=== PATIENT | female | born 1975 | race African-American/Black ===

== ENCOUNTER 2018-03-27 13:44 | Emergency (ER) | payer SELFPAY ==
[~2018-03-27] VITALS: Ht 154.9 cm; Wt 74.8 kg
[~2018-03-27 13:44] MED LIST: LISI-130 PO; LISI-334 PO
[2018-03-27 13:49] VITALS: BP 166/98
[2018-03-27] MEDS ORDERED: SULF1TAB24 PO (14:16)
--- NOTE | 2018-03-27 14:16 | PHYS DOC ---
Past Medical History Past Medical History: Diverticulitis, Diverticulosis, GERD, Hypertension, IBS, Other Additional Past Medical Histor: SBS Past Surgical History: Other Additional Past Surgical Histo: SBO, tibia and fibula repair Alcohol Use: Occasionally Drug Use: None Adult General Chief Complaint Chief Complaint: INSECT BITE HPI HPI Patient is a 42 year old female who presents with a tender lump to the left posterior neck. The patient states that she noticed it yesterday. It has now become tender. She also wanted me to look at her finger that she burned that has now developed a keloid scarring. The patient does not currently have a primary care provider. She denies fevers, nausea or vomiting. Review of Systems Review of Systems Constitutional: Denies fever or chills [] Eyes: Denies change in visual acuity, redness, or eye pain [] HENT: Denies nasal congestion or sore throat [] Respiratory: Denies cough or shortness of breath [] Cardiovascular: No additional information not addressed in HPI [] GI: Denies abdominal pain, nausea, vomiting, bloody stools or diarrhea [] : Denies dysuria or hematuria [] Musculoskeletal: Denies back pain or joint pain [] Integument: See history of present illness Neurologic: Denies headache, focal weakness or sensory changes [] Endocrine: Denies polyuria or polydipsia [] All other systems were reviewed and found to be within normal limits, except as documented in this note. Allergies Allergies Allergies Coded Allergies Type Severity Reaction Last Updated Verified No Known Drug Allergies 06/18/16 No Physical Exam Physical Exam Constitutional: Well developed, well nourished, no acute distress, non-toxic appearance. [] Cardiovascular:Heart rate regular rhythm, no murmur [] Lungs & Thorax: Bilateral breath sounds clear to auscultation [] Abdomen: Bowel sounds normal, soft, no tenderness, no masses, no pulsatile masses. [] Skin: 2 cm indurated cystlike lesion that is beginning to become erythematous, no fluctuance noted, the patient also has a large keloid to her index finger that is restricted movement of the digit Back: No tenderness, no CVA tenderness. [] Extremities: No tenderness, no cyanosis, no clubbing, ROM intact, no edema. [] Neurologic: Alert and oriented X 3, normal motor function, normal sensory function, no focal deficits noted. [] Psychologic: Affect normal, judgement normal, mood normal. [] EKG EKG [] Radiology/Procedures Radiology/Procedures [] Course & Med Decision Making Course & Med Decision Making Pertinent Labs and Imaging studies reviewed. (See chart for details) []The patient and I discussed her need for a primary care provider for referral to plastic surgery for her finger. She is also encouraged to follow up after the antibiotics to have this cyst like mass removed. She is in agreement with this plan. Dragon Disclaimer Dragon Disclaimer This electronic medical record was generated, in whole or in part, using a voice recognition dictation system. Departure Departure Impression: Primary Impression: Abscess Disposition: 01 HOME, SELF-CARE Condition: STABLE Referrals: NO PCP (PCP) Patient Instructions: Abscess Additional Instructions: Take the antibiotic as directed. Follow-up with primary care for removal of this cyst after the infection is cleared. Return to the emergency department if worsening. Scripts Sulfamethoxazole/Trimethoprim (BACTRIM DS TABLET) 1 Each Tablet 1 TAB PO BID, #20 TAB Prov: EYAL DARDEN APRN 03/27/18 EYAL DARDEN APRN Mar 27, 2018 14:16
== END 2018-03-27 14:25 | disposition home or self-care (01) ==
LOC: ER 13:44
DX: L02.511 Cutaneous abscess of right hand (principal); L02.11 Cutaneous abscess of neck; L91.0 Hypertrophic scar
CPT/HCPCS: 99283